=== PATIENT | male | born 1975 | race American Indian/Alaskan Native ===

== ENCOUNTER 2022-06-14 12:02 | Day surgery (SDC) | payer OTHER ==
[2022-06-14] MEDS ORDERED: LACTATED RINGERS 1,000 ML ONE (12:19)
[2022-06-14] MEDS ORDERED: MAGNESIUM OXIDE 400 MG TAB PO NR (13:12)
[2022-06-14] MEDS ORDERED: ACETAMINOPHEN 500 MG TAB PO NR (13:12)
--- NOTE | 2022-06-14 13:13 | Anesthesia Day of Surgery ---
Anesthesia Day of Surgery - Day of Surgery Patient Examined: Yes Patient H&P Reviewed: Yes Patient is NPO: Yes
--- NOTE | 2022-06-14 13:14 | Anesthesia Consultation ---
Anesthesia Consult and Med Hx Date of service: 06/14/22 - Airway Anesthetic Teeth Evaluation: Good ROM Head & Neck: Adequate Mental/Hyoid Distance: Adequate Mallampati Class: Class II Intubation Access Assessment: Good - Pre-Operative Health Status ASA Pre-Surgery Classification: ASA2 Proposed Anesthetic Plan: General - Pulmonary Hx Smoking: No Hx Sleep Apnea: No - Cardiovascular System Hx Hypertension: Yes ("Well controlled") - Central Nervous System Hx Psychiatric Problems: No - Gastrointestinal Hx Gastroesophageal Reflux Disease: Yes (Dietary) - Hematic Hx Sickle Cell Disease: No - Other Systems Hx Cancer: No
[2022-06-14] MEDS ORDERED: LACTATED RINGERS 1,000 ML IV SCH (14:00)
[2022-06-14] MEDS ORDERED: MIDAZOLAM 2 MG/2 ML INJ IV NR (14:00)
[2022-06-14] MEDS ORDERED: CELECOXIB 200 MG CAP PO NR (14:00)
[2022-06-14] MEDS ORDERED: HYDROmorphone 0.5 MG/0.5 ML INJ IV PRN ×2 (14:00)
[2022-06-14] MEDS ORDERED: ONDANSETRON 4 MG/2 ML INJ IV PRN (14:00)
[2022-06-14] MEDS ORDERED: fentaNYL 100 MCG/2 ML INJ ONE (14:14)
[2022-06-14] MEDS ORDERED: LIDOCAINE MPF (2%) 20 MG/1 ML VIAL 5 ML ONE (14:14)
[2022-06-14] MEDS ORDERED: propofoL 200 MG/20 ML VIAL IV ONE (14:14)
[2022-06-14] MEDS ORDERED: METHYLERGONOVINE MALEATE 0.2 MG/ML VIAL IM ONE (14:16)
[2022-06-14] MEDS ORDERED: METHYLENE BLUE 50 MG/10 ML AMP ONE (14:17)
[2022-06-14] MEDS ORDERED: ceFAZolin/Water 2 GM/20 ML 2 GM/20 ML SYRINGE IV ONE (15:02)
[2022-06-14] MEDS ORDERED: ceFAZolin/STERILE WATER 2 GM/20 ML SYRINGE IV NR (15:03)
--- NOTE | 2022-06-14 15:27 | Discharge Summary ---
Short Stay Discharge Plan Activity: other (no straining ) Weight Bearing Status: Full Weight Bearing Diet: low fat, low cholesterol, low salt Wound: open to air Special Instructions: other (has drain ) Durable Medical Equipment Needed Upon Discharge: other (anita ) Follow up with: PAUL WOOD [Other] - 7 Days NERIS ROBLERO MD [Staff Physician] - 06/15/22
--- NOTE | 2022-06-14 15:29 | Post Operative Note ---
Pre-op diagnosis: left epidid nodule sterilization Post-op diagnosis: same Findings: as above Procedure: scrotal exp excision epidi nodule vas Anesthesia: GETA Surgeon: NERIS ROBLERO Estimated blood loss: minimal Pathology: list (nodule) Specimen disposition: to lab Condition: stable Disposition: PACU
[2022-06-14] MEDS ORDERED: SODIUM CHLORIDE 0.9% IRR 1,500 ML BOTTLE IR ONE (15:41)
[2022-06-14] MEDS ORDERED: ONDANSETRON 4 MG/2 ML INJ ONE (16:30)
[2022-06-14 18:25] VITALS: BP 138/80
--- NOTE | 2022-06-14 18:41 | Operative Report ---
DATE OF SURGERY: 06/14/2022 PREOPERATIVE DIAGNOSES: Right epididymal nodule, elective sterilization. POSTOPERATIVE DIAGNOSES: Right epididymal nodule, elective sterilization. PROCEDURES: Left scrotal exploration, partial left epididymectomy, bilateral partial vasectomy. SURGEON: Ryan Wyman MD ANESTHESIA: General. FINDINGS: This is a gentleman who presented for vasectomy. He had a nodule on his left epididymis. He now presents for treatment. Nodule is measuring approximately 7-9 mm. It was rock hard and tender. It was outside extratesticular. DESCRIPTION OF PROCEDURE: The patient was brought to operating room and placed on the operating table. Following induction of anesthesia, placed in the supine position, prepped and draped in usual sterile fashion. An oblique incision made over the left hemiscrotum. Testis was surrounded with some fibrotic tissue, but the tunica was opened and we could feel a nodule at the head of the epididymis, it was hard and right at the head of the epididymis. It was dissected free and the testis was repaired. The testis was moderately atrophic. We took a picture, it was measured, no more than 3 cm. We closed the epididymis, was suture ligated at the mid body. We just to be sure it looked like it was totally disengage but the vas was also done and tied, avascular plane. No vessels were incorporated with it. The testis was quite viable, excellent blood supply. At this point, the right vas was isolated, ligated, and divided. The patient tolerated the procedure well. A small Shaniqua was placed in the dependent portion of left hemiscrotum. Scrotal sac was closed with 3-0 chromic and in multiple layers and brought to recovery room, minimal blood loss, in stable condition. TID: [id number] RECEIPT: [id number] CLAUDIO/ASHLEY/GIOVANNI
--- NOTE | 2022-06-14 19:02 | Post Anesthesia Evaluation ---
- Post Anesthesia Evaluation Patient Participated: Yes Airway Patent: Yes Stable Respiratory Function: Yes Nausea/Vomiting: No Temp > 96.8F: Yes Pain Manageable: Yes Adequeate Hydration: Yes Anesthesia Complications: No Block Receding Appropriately: Not Applicable Patient on Ventilator: No
== END 2022-06-14 18:10 | disposition home or self-care (01) ==
LOC: OR 12:02
PROVIDERS: ATTEND Urology
DX: Z30.2 Encounter for sterilization (principal); N50.3 Cyst of epididymis; E78.00 Pure hypercholesterolemia, unspecified; I10 Essential (primary) hypertension; K21.9 Gastro-esophageal reflux disease without esophagitis; Z79.899 Other long term (current) drug therapy; Z80.42 Family history of malignant neoplasm of prostate
CPT/HCPCS: 36415; 54860; 55250; 84132; 88302; 88305; 88342; J0690; J1170; J2250; J2405; J2704; J3010; J7120; Q9968; 88307; J2210